=== PATIENT | male | born 1975 | race African-American/Black ===

== ENCOUNTER 2023-03-04 05:03 | Emergency (ER) | payer MEDICAID ==
[~2023-03-04] VITALS: Ht 160 cm; Wt 61.5 kg
[2023-03-04 05:10] VITALS: PULSE 95
[2023-03-04 05:15] VITALS: BP 124/86; RESP 14; TEMP 98.5; O2SAT 98
[2023-03-04] MEDS ORDERED: BACITRACIN 14GM TUBE TOP ONE (06:30)
[2023-03-04] MEDS ORDERED: CEFTRIAXONE SODIUM 1 G/VIAL IM ONE (06:30)
[2023-03-04] MEDS ORDERED: DOXYCYCLINE HYCLATE 100MG CAPSULE PO ONE (06:30)
[2023-03-04] MEDS ORDERED: DOXYCYCLINE HYCLATE 100MG CAPSULE PO SCH (09:00)
[2023-03-04] MEDS ORDERED: CEFTRIAXONE SODIUM 1 G/VIAL IM SCH (09:00)
[2023-03-07 13:11] LABS: CHLAMYDIA TRACHOMATIS NAA Negative (Negative); NEISSERIA GONORRHOEAE NAA Negative (Negative)
== END 2023-03-04 09:22 | disposition home or self-care (01) ==
LOC: ER 05:03
DX: L73.9 Follicular disorder, unspecified (principal); Z90.49 Acquired absence of other specified parts of digestive tract
CPT/HCPCS: 76870; 87491; 87591; 93976; 96372; 99285; J0696

== ENCOUNTER 2023-03-30 02:55 | Emergency (ER) | payer MEDICAID ==
[~2023-03-30] VITALS: Ht 162.6 cm; Wt 70.0 kg
[2023-03-30 03:31] VITALS: BP 133/89; PULSE 117; RESP 14; TEMP 101.5; O2SAT 98
[2023-03-30] MEDS ORDERED: IBUPROFEN 600MG TABLET PO ONE (05:15)
== END 2023-03-30 06:26 | disposition left against medical advice (07) ==
LOC: ER 02:55
DX: R05.9 Cough, unspecified (principal); R51.9 Headache, unspecified; Z53.21 Procedure and treatment not carried out due to patient leaving prior to being seen by health care provider
CPT/HCPCS: 71045; 99281